=== PATIENT | male | born 1955 | race Caucasian/White ===

== ENCOUNTER 2018-11-09 04:32 | Emergency (ER) | payer OTHER ==
[2018-11-09] MEDS ORDERED: ALBUTEROL 2.5 MG/3 ML NEB SOL ONE (05:49)
[2018-11-09] MEDS ORDERED: METHYLPREDNISOLONE 125 MG INJ ONE (05:49)
[2018-11-09] MEDS ORDERED: Magnesium Sulfate 2gm IVPB 2 G/50 ML BAG IV ONE (05:50)
[2018-11-09 06:23] LABS: Absolute Lymphocytes (CBC) 2.5 K/uL (0.7-4.9); Absolute Monocytes 2.4 K/uL (0.1-1.3); Absolute Neutrophil 12.2 K/uL (1.8-8.0); Basophils % 0.9 % (0-1.3); Eosinophils % 3.2 % (0-4.4); Hematocrit 46.3 % (39.6-49.0); MPV 8.2 fL (7.6-11.3); Monocytes % 13.5 % (3.3-12.3); RBC Red Blood Cell Count 5.54 M/uL (4.33-5.43)
[2018-11-09 06:26] LABS: Protime INR 1.08
[2018-11-09 06:33] LABS: ALT/SGPT 26 U/L (12-78); AST/SGOT 12 U/L (15-37); Albumin 3.4 g/dL (3.4-5.0); Alkaline Phosphatase 124 U/L (45-117); BUN Blood Urea Nitrogen 10 mg/dL (7-18); Bicarbonate 27 mmol/L (21-32); Bilirubin Direct 0.1 mg/dL (0-0.2); Bilirubin Total 0.4 mg/dL (0.2-1.0); Glucose Level 109 mg/dL (74-106); Lipase 103 U/L (73-393); Magnesium 2.2 mg/dL (1.8-2.4); NT PRO-BNP 77 pg/mL (<125); Potassium 4.3 mmol/L (3.5-5.1); Protein, Total 7.6 g/dL (6.4-8.2); Sodium Level 142 mmol/L (136-145); Troponin (Emerg Dept Use Only) < 0.02 ng/mL (0.0-0.045)
[2018-11-09] MEDS ORDERED: LEVALBUTEROL 0.63 MG/3 ML NEB ONE (07:39)
[2018-11-09] MEDS ORDERED: LEVALBUTEROL 1.25 MG/3 ML NEB ONE (07:39)
--- NOTE | 2018-11-09 08:45 | RAD REPORT ---
EXAM DESCRIPTION: RAD - Chest Pa And Lat (2 Views) - 11/09/2018 6:42 am CLINICAL HISTORY: Cough and congestion COMPARISON: None. TECHNIQUE: PA and lateral views of the chest were obtained. FINDINGS: The lungs are clear of failure, infiltrate or mass. Mild prominence of the interstitial ma rkings believed to be baseline. Heart size is normal and central vasculature is within normal limit s. No pleural effusion or pneumothorax seen. No acute bony finding noted. No aortic abnormality. IMPRESSION: No acute cardiopulmonary process.
--- NOTE | 2018-11-09 08:52 | EDPHYS ---
Physician Documentation [facility] Name: Joe Scanlon Jr Age: 63 yrs Sex: Male : 1955 Arrival Date: 11/09/2018 Time: 04:33 Bed 19 Private MD: ED Physician Laith Lauren HPI: 11/09 07:20 This 63 yrs old Male presents to ER via Ambulatory with complaints of Cough, cp Shortness Of Breath. 07:20 The patient or guardian reports cough, that is intermittent, difficulty breathing. cp Onset: The symptoms/episode began/occurred last week. Severity of symptoms: in the emergency department the symptoms are unchanged, despite home interventions. 07:20 Associated signs and symptoms: Pertinent positives: chest pain, with cough, Pertinent cp negatives: diarrhea, fever, vomiting. Historical: - Allergies: 04:53 No Known Allergies; bb - Home Meds: 04:53 amlodipine 2.5 mg tab 1 tab once daily [Active]; Lipitor 40 mg Oral tab 1 tab once bb daily [Active]; isosorbide [Active]; aspirin 325 mg Oral tab 1 tab once daily [Active]; Plavix 75 mg Oral tab 1 tab once daily [Active]; - PMHx: 04:53 CAD; COPD; Hyperlipidemia; Hypertension; bb - PSHx: 04:53 Heart stents; neck surgery; bilateral shoulders; exploratory abdominal surgery; bb Appendectomy; Tonsillectomy; - Immunization history:: Adult Immunizations up to date, Flu vaccine is not up to date. - Social history:: Smoking status: Patient uses tobacco products, smokes one pack cigarettes per day. - Ebola Screening: : No symptoms or risks identified at this time. ROS: 07:25 Constitutional: Negative for fever, poor PO intake. cp 07:25 Eyes: Negative for injury, pain, redness, and discharge. cp 07:25 ENT: Negative for drainage from ear(s), ear pain, difficulty swallowing, difficulty handling secretions. 07:25 Cardiovascular: Positive for chest pain, with cough, Negative for edema, palpitations. 07:25 Respiratory: Positive for cough, with no reported sputum, wheezing. 07:25 Abdomen/GI: Negative for abdominal pain, vomiting, diarrhea, constipation. 07:25 : Negative for urinary symptoms. 07:25 Skin: Negative for cellulitis, rash. 07:25 Neuro: Negative for altered mental status, dizziness, weakness. 07:25 All other systems are negative. Exam: 06:20 ECG was reviewed by the Attending Physician. cp 07:30 Constitutional: The patient appears in no acute distress, alert, awake, cp non-diaphoretic, non-toxic, well developed, well nourished. 07:30 Head/Face: Normocephalic, atraumatic. cp 07:30 Eyes: Pupils equal round and reactive to light, extra-ocular motions intact. Lids and lashes normal. Conjunctiva and sclera are non-icteric and not injected. Cornea within normal limits. Periorbital areas with no swelling, redness, or edema. ENT: Nares patent. No nasal discharge, no septal abnormalities noted. Tympanic membranes are normal and external auditory canals are clear. Oropharynx with no redness, swelling, or masses, exudates, or evidence of obstruction, uvula midline. Mucous membranes moist. Chest/axilla: Normal chest wall appearance and motion. Nontender with no deformity. No lesions are appreciated. 07:30 Cardiovascular: Rate: normal, Rhythm: regular, Edema: is not appreciated, JVD: is not appreciated. 07:30 Respiratory: the patient does not display signs of respiratory distress, Respirations: labored breathing, that is mild, Breath sounds: decreased breath sounds, that are mild, throughout, stridor, is not appreciated, wheezing: that is moderate, is heard diffusely. 07:30 Abdomen/GI: Inspection: abdomen appears normal, Bowel sounds: active, all quadrants, Palpation: abdomen is soft and non-tender, in all quadrants, rebound tenderness, is not appreciated, voluntary guarding, is not appreciated, involuntary guarding, is not appreciated. 07:30 Back: pain, is absent, ROM is normal. 07:30 Skin: cellulitis, is not appreciated, no rash present. 07:30 Neuro: Orientation: to person, place \T\ time. Mentation: is normal. Vital Signs: 04:53 BP 160 / 94; Pulse 81; Resp 18 S; Temp 97.7(O); Pulse Ox 96% on R/A; Weight 94.35 kg bb (R); Height 5 ft. 9 in. (175.26 cm) (R); Pain 10; 06:19 BP 132 / 77; Pulse 76; Resp 20; Pulse Ox 97% on R/A; Pain 1/10; ed1 07:26 BP 142 / 78; Pulse 86; Resp 18; Pulse Ox 92% on R/A; tw2 04:53 Body Mass Index 30.72 (94.35 kg, 175.26 cm) bb MDM: 04:46 Patient medically screened. nv 08:50 Data reviewed: vital signs, nurses notes, lab test result(s), EKG, radiologic studies, cp plain films. 08:50 Differential Diagnosis: Bronchitis Influenza Upper Respiratory Infection Viral Syndrome cp Pneumonia. Test interpretation: by ED physician or midlevel provider: ECG, plain radiologic studies. Counseling: I had a detailed discussion with the patient and/or guardian regarding: the historical points, exam findings, and any diagnostic results supporting the discharge/admit diagnosis, lab results, radiology results, the need for outpatient follow up, a family practitioner, to return to the emergency department if symptoms worsen or persist or if there are any questions or concerns that arise at home. Response to treatment: the patient's symptoms have markedly improved after treatment, VSS. Wheezing resolved and patient reports symptoms markedly improved. Will discharge to home for continued monitoring. 11/09 05:30 Order name: Blood Culture Adult (2) nv 11/09 05:30 Order name: BMP; Complete Time: 07:05 nv 11/09 07:06 Interpretation: Normal except: GLUC 109; GFR 85; CA 8.4. cp 11/09 05:30 Order name: CBC with Diff; Complete Time: 07:05 nv 11/09 07:06 Interpretation: Normal except: WBC 17.9; RBC 5.54; LYM% 14.0; MN% 13.5; NEUT A 12.2; cp MNA 2.4; EOSA 0.6. 11/09 05:30 Order name: Hepatic Function; Complete Time: 07:05 nv 11/09 08:48 Interpretation: Normal except: AST 12; ALK 124; GLOB 4.2; A/G 0.8. cp 11/09 05:30 Order name: Lipase; Complete Time: 07:05 nv 11/09 05:30 Order name: Magnesium; Complete Time: 07:05 nv 11/09 05:30 Order name: XRAY Chest Pa And Lat (2 Views); Complete Time: 08:46 nv 11/09 05:30 Order name: NT PRO-BNP; Complete Time: 07:05 nv 11/09 05:30 Order name: PT-INR; Complete Time: 07:05 nv 11/09 05:30 Order name: Troponin (emerg Dept Use Only); Complete Time: 07:05 nv 11/09 05:30 Order name: Flu; Complete Time: 07:05 nv 11/09 05:30 Order name: EKG; Complete Time: 05:31 nv 11/09 05:30 Order name: Cardiac monitoring; Complete Time: 05:35 nv 11/09 05:30 Order name: EKG - Nurse/Tech; Complete Time: 06:21 nv 11/09 05:30 Order name: IV Saline Lock; Complete Time: 06:22 nv 11/09 05:30 Order name: Labs collected and sent; Complete Time: 06:22 nv 11/09 05:30 Order name: O2 Per Protocol; Complete Time: 05:35 nv 11/09 05:30 Order name: O2 Sat Monitoring; Complete Time: 05:36 nv EC:20 Rate is 80 beats/min. Rhythm is regular. AR interval is normal. QRS interval is normal. cp QT interval is normal. Interpreted by me. Reviewed by me. Administered Medications: 05:35 Not Given (Other Intervention Used): Decadron - Dexamethasone 10 mg IVP once ed1 06:07 Drug: Albuterol 2.5 mg Route: Inhalation; ed1 06:07 Drug: Magnesium Sulfate 2 grams Route: IVPB; Infused Over: 2 hrs; Site: right forearm; ed1 07:10 Follow up: Response: No adverse reaction; IV Status: Completed infusion sg 06:07 Drug: SOLU-Medrol 125 mg Route: IVP; Site: right forearm; ed1 07:25 Follow up: Response: No adverse reaction tw2 08:59 Follow up: Response: No adverse reaction tw2 06:22 Drug: Albuterol 2.5 mg Route: Inhalation; ed1 06:44 Drug: Albuterol 2.5 mg Route: Inhalation; ed1 07:30 Drug: Xopenex (3) 1.25 mg Route: Inhalation; tw2 08:59 Follow up: Response: No adverse reaction tw2 Disposition: 10:19 Co-signature as Attending Physician, Laith Lauren MD I agree with the assessment and nv plan of care. Disposition: 11/09/18 08:51 Discharged to Home. Impression: Chronic obstructive pulmonary disease with acute lower respiratory infection. - Condition is Stable. - Discharge Instructions: Chronic Obstructive Pulmonary Disease, Upper Respiratory Infection, Adult. - Prescriptions for Albuterol Sulfate 2.5 mg /3 mL (0.083 %) Inhalation Solution for Nebulization - inhale 1 unit by NEBULIZATION route every 8 hours As needed; 1 box. Zithromax Z- Emmanuel 250 mg Oral Tablet - take 1 tablet by ORAL route as directed for 5 days Day 1 - take two (2) tablets one time. Day 2, 3, 4 , 5 take one (1) tablet once daily.; 6 tablet. Prednisone 20 mg Oral Tablet - take 2 tablet by ORAL route once daily for 5 days; 10 tablet. Tessalon Perles 100 mg Oral Capsule - take 2 capsule by ORAL route every 8 hours As needed; 20 capsule. - Medication Reconciliation Form, Thank You Letter, Antibiotic Education, Prescription Opioid Use form. - Follow up: Private Physician; When: once returned home; Reason: Recheck today's complaints. - Problem is new. - Symptoms have improved. Signatures: Dispatcher [employer] EDMS Sonia Wakefield RN RN bb Sherrie Silver RN RN ed1 Keven Carl PA PA cp Lesley Torres RN RN tw2 Laith Lauren MD MD wa Gay, Steven RN sg Corrections: (The following items were deleted from the chart) 07:06 07:06 Normal except: GLUC 109; GFR 85. cp cp 07:06 07:06 Normal except: WBC 17.9; RBC 5.54; LYM% 14.0; MN% 13.5; NEUT A 12.2. cp cp 07:06 07:06 Normal except: WBC 17.9; RBC 5.54; LYM% 14.0; MN% 13.5; NEUT A 12.2; MNA 2.4. cp cp 08:59 08:51 11/09/2018 08:51 Discharged to Home. Impression: Chronic obstructive pulmonary tw2 disease with acute lower respiratory infection. Condition is Stable. Forms are Medication Reconciliation Form, Thank You Letter, Antibiotic Education, Prescription Opioid Use. Follow up: Private Physician; When: once returned home; Reason: Recheck today's complaints. Problem is new. Symptoms have improved. cp 11/10 07:17 11/09 07:20 Associated signs and symptoms: Pertinent positives: chest pain, with cough, cp fever, Pertinent negatives: diarrhea, vomiting, cp
--- NOTE | 2018-11-09 08:52 | ER ---
Nurse's Notes [facility] Name: Joe Scanlon Jr Age: 63 yrs Sex: Male : 1955 Arrival Date: 11/09/2018 Time: 04:33 Bed 19 Private MD: Diagnosis: Chronic obstructive pulmonary disease with acute lower respiratory infection Presentation: 11/09 04:49 Presenting complaint: Patient states: he is having difficulty breathing with bb non-productive cough since Thursday denies fever. Transition of care: patient was not received from another setting of care. Onset of symptoms was November 05, 2018. Risk Assessment: Do you want to hurt yourself or someone else? Patient reports no desire to harm self or others. Initial Sepsis Screen: Does the patient meet any 2 criteria? No. Patient's initial sepsis screen is negative. Does the patient have a suspected source of infection? No. Patient's initial sepsis screen is negative. Care prior to arrival: None. 04:49 Method Of Arrival: Ambulatory bb 04:49 Acuity: MARYANN 3 bb 04:55 Note pt has been taking OTC cold medications with no relief pt also has mildly sore bb throat possibly from coughing. Historical: - Allergies: 04:53 No Known Allergies; bb - Home Meds: 04:53 amlodipine 2.5 mg tab 1 tab once daily [Active]; Lipitor 40 mg Oral tab 1 tab once bb daily [Active]; isosorbide [Active]; aspirin 325 mg Oral tab 1 tab once daily [Active]; Plavix 75 mg Oral tab 1 tab once daily [Active]; - PMHx: 04:53 CAD; COPD; Hyperlipidemia; Hypertension; bb - PSHx: 04:53 Heart stents; neck surgery; bilateral shoulders; exploratory abdominal surgery; bb Appendectomy; Tonsillectomy; - Immunization history:: Adult Immunizations up to date, Flu vaccine is not up to date. - Social history:: Smoking status: Patient uses tobacco products, smokes one pack cigarettes per day. - Ebola Screening: : No symptoms or risks identified at this time. Screenin:24 Abuse screen: Denies threats or abuse. Denies injuries from another. Nutritional ed1 screening: No deficits noted. Tuberculosis screening: No symptoms or risk factors identified. Fall Risk None identified. Assessment: 05:24 General: Appears uncomfortable, Behavior is calm, cooperative. Pain: Complains of pain ed1 in chest Pain does not radiate. Pain currently is 1 out of 10 on a pain scale. Quality of pain is described as aching, Pain began 2-3 days ago. Is continuous, Aggravated by coughing. Neuro: Level of Consciousness is awake, alert, obeys commands, Oriented to person, place, time, situation. Cardiovascular: Denies chest pain, Heart tones S1 S2 present Rhythm is regular. Respiratory: Reports shortness of breath at rest cough that is non-productive, Airway is patent Respiratory effort is even, unlabored, Respiratory pattern is regular, symmetrical, Breath sounds are coarse bilaterally. Onset: The symptoms/episode began/occurred this weekend, the patient has moderate shortness of breath. GI: Abdomen is non-distended, Bowel sounds present X 4 quads. Abd is soft and non tender X 4 quads. : No signs and/or symptoms were reported regarding the genitourinary system. EENT: No signs and/or symptoms were reported regarding the EENT system. Derm: Skin is intact, is healthy with good turgor, Skin is dry, Skin is normal, Skin temperature is warm. Musculoskeletal: Circulation, motion, and sensation intact. Range of motion: intact in all extremities. 06:19 Reassessment: Patient appears in no apparent distress at this time. No changes from ed1 previously documented assessment. Patient and/or family updated on plan of care and expected duration. Pain level reassessed. Patient is alert, oriented x 3, equal unlabored respirations, skin warm/dry/pink. Patient states symptoms have not improved. 07:15 Reassessment: Patient appears in no apparent distress at this time. No changes from tw2 previously documented assessment. Patient and/or family updated on plan of care and expected duration. Pain level reassessed. Patient is alert, oriented x 3, equal unlabored respirations, skin warm/dry/pink. 08:39 Reassessment: Patient appears in no apparent distress at this time. No changes from tw2 previously documented assessment. Patient and/or family updated on plan of care and expected duration. Pain level reassessed. Patient is alert, oriented x 3, equal unlabored respirations, skin warm/dry/pink. pt states "i am ready to go i am getting anxious". 08:58 Reassessment: Patient appears in no apparent distress at this time. Patient is alert, tw2 oriented x 3, equal unlabored respirations, skin warm/dry/pink. Vital Signs: 04:53 BP 160 / 94; Pulse 81; Resp 18 S; Temp 97.7(O); Pulse Ox 96% on R/A; Weight 94.35 kg bb (R); Height 5 ft. 9 in. (175.26 cm) (R); Pain 1/10; 06:19 BP 132 / 77; Pulse 76; Resp 20; Pulse Ox 97% on R/A; Pain 1/10; ed1 07:26 BP 142 / 78; Pulse 86; Resp 18; Pulse Ox 92% on R/A; tw2 04:53 Body Mass Index 30.72 (94.35 kg, 175.26 cm) bb ED Course: 04:33 Patient arrived in ED. am2 04:50 Triage completed. bb 04:53 Arm band placed on Patient placed in an exam room, on a stretcher, on pulse oximetry. bb Family accompanied patient. 05:23 Jan Escobar RN is Primary Nurse. rr5 05:24 Primary Nurse role handed off by Jan Escobar RN ed1 05:24 Sherrie Silver, TREVOR is Primary Nurse. ed1 05:24 Patient has correct armband on for positive identification. Placed in gown. Bed in low ed1 position. Call light in reach. Side rails up X 1. Adult w/ patient. Pulse ox on. NIBP on. 06:07 Initial Neb Treatment Given as ordered Patient was instructed and evaluated on ed1 procedure Patient tolerated procedure well without adverse effect. 06:11 Keven Carl PA is PHCP. cp 06:11 Laith Lauren MD is Attending Physician. cp 06:20 Initial lab(s) drawn, by ak, sent to lab. Inserted saline lock: 22 gauge in right ed1 forearm, using aseptic technique. Blood collected. 06:40 Patient moved to radiology via wheelchair. kw 06:40 X-ray completed. Patient tolerated procedure well. kw 06:40 Patient moved back from radiology. kw 06:41 XRAY Chest Pa And Lat (2 Views) In Process Unspecified. EDMS 07:07 Primary Nurse role handed off by Sherrie Silver, TREVOR ed1 07:25 Lesley Torres RN is Primary Nurse. tw2 08:57 No provider procedures requiring assistance completed. IV discontinued, intact, tw2 bleeding controlled, No redness/swelling at site. Pressure dressing applied. Administered Medications: 05:35 Not Given (Other Intervention Used): Decadron - Dexamethasone 10 mg IVP once ed1 06:07 Drug: Albuterol 2.5 mg Route: Inhalation; ed1 06:07 Drug: Magnesium Sulfate 2 grams Route: IVPB; Infused Over: 2 hrs; Site: right forearm; ed1 07:10 Follow up: Response: No adverse reaction; IV Status: Completed infusion sg 06:07 Drug: SOLU-Medrol 125 mg Route: IVP; Site: right forearm; ed1 07:25 Follow up: Response: No adverse reaction tw2 08:59 Follow up: Response: No adverse reaction tw2 06:22 Drug: Albuterol 2.5 mg Route: Inhalation; ed1 06:44 Drug: Albuterol 2.5 mg Route: Inhalation; ed1 07:30 Drug: Xopenex (3) 1.25 mg Route: Inhalation; tw2 08:59 Follow up: Response: No adverse reaction tw2 Outcome: 08:51 Discharge ordered by . cp 08:57 Discharged to home ambulatory, with significant other. tw2 08:57 Condition: stable 08:57 Discharge instructions given to patient, significant other, Instructed on discharge instructions, follow up and referral plans. no drinking with medication, no driving heavy equipment, medication usage, Demonstrated understanding of instructions, follow-up care, medications, Prescriptions given X 4. 08:59 Patient left the ED. tw2 Signatures: Dispatcher [employer] EDMS Demar Heller RN RN sg Sonia Wakefield RN RN bb Riggs, Erika, RN RN ed1 Sophie Bruce Corey, PA PA cp Wise, Tara RN RN tw2 Debi Burks amJan Shepard RN RN rr5
--- NOTE | 2018-11-11 10:27 | EKG ---
Test Date: 2018-11-09 Test Time: 06:07:55 [employer]house [employer] Worker: TANJA MEASUREMENT RESULTS: Intervals: Rate: 78 IA: 208 QRSD: 82 QT: 360 QTc: 410 Vaughn: P: 55 IA: 208 QRS: 45 T: 60 INTERPRETIVE STATEMENTS: Normal sinus rhythm Normal ECG No previous ECG available for comparison Electronically Signed On 11-09-18 12:40:15 CDT by Murray Pichardo
== END 2018-11-09 08:59 | disposition home or self-care (01) ==
LOC: ER 04:32
DX: J44.0 Chronic obstructive pulmonary disease with (acute) lower respiratory infection (principal); I25.10 Atherosclerotic heart disease of native coronary artery without angina pectoris; I10 Essential (primary) hypertension; J44.9 Chronic obstructive pulmonary disease, unspecified; E78.5 Hyperlipidemia, unspecified; F17.210 Nicotine dependence, cigarettes, uncomplicated; Z79.82 Long term (current) use of aspirin
CPT/HCPCS: 96365; 93005; 87040 ×2; 85025; 80048; 36415; 83735; 85610; 80076; 84484; 83690; 83880; 87804 ×2; 71046; 96375; 99284; J3475; J2930